=== PATIENT | female | born 1935 | race African-American/Black ===

== ENCOUNTER 2016-10-09 08:40 | Emergency (ER) | payer OTHER, BC ==
[~2016-10-09 08:40] MED LIST: AMLODIPINE5 MG PO; ASPIRIN LOW STR81 M1 PO; ATORVASTATIN CA10 MG PO; ENALAPRIL20 MG PO; HYDROCORTISONE 20 MG PO; LEVOTHYROXIN0.112 MG PO; METFORMIN500 MG PO; SULFAMETHOXAZOLE; VITAMIN D PO
[2016-10-09 09:39] VITALS: BP 155/78
== END 2016-10-09 09:39 | disposition home or self-care (01) ==
LOC: ED 08:40
DX: L02.412 Cutaneous abscess of left axilla (principal); I10 Essential (primary) hypertension; E11.9 Type 2 diabetes mellitus without complications
CPT/HCPCS: J2001

== ENCOUNTER 2016-10-11 08:47 | Inpatient (IN) | payer OTHER, BC ==
[~2016-10-11] VITALS: Ht 175.3 cm; Wt 110.4 kg
[2016-10-11 10:03] LABS: BASOPHIL % 0.5 % (0-2); PLATELET COUNT 205 x10^3mcL (130-400); RED CELL DISTRIBUTION WIDTH 14.5 % (11.5-14.5)
[2016-10-11 10:09] LABS: CALCIUM 8.7 mg/dL (8.5-10.1); CARBON DIOXIDE 25.5 mmol/L (21-32); CHLORIDE SERUM 103 mmol/L (98-107); CREATININE SERUM 2.3 mg/dL (0.6-1.0); GLUCOSE SERUM 251 mg/dL (74-106); SODIUM SERUM 138 mmol/L (136-145)
[2016-10-11 10:20] LABS: ALKALINE PHOSPHATASE 59 U/L (46-116); ALT/SGPT 22 U/L (14-59); AST/SGOT 27 U/L (15-37); MAGNESIUM 1.7 mg/dL (1.8-2.4); TOTAL PROTEIN, SERUM 6.5 g/dL (6.4-8.2)
[2016-10-11 12:15] LABS: UA SPECIFIC GRAVITY 1.015 (1.005-1.035); microscopic required? YES; urine erythrocyte 3+ (NEGATIVE)
[2016-10-11 13:02] LABS: CHOLESTEROL/HDL RATIO 3.3; PHOSPHOROUS 2.5 mg/dL (2.5-4.9)
[2016-10-11 13:09] LABS: FREE T4 1.01 ng/dL (0.76-1.46); T4(THYROXINE) 6.2 ug/dL (4.7-13.3)
[2016-10-11 14:01] VITALS: BP 142/55
[2016-10-11 14:09] VITALS: Ht 175.3 cm; Wt 110.4 kg
[2016-10-11 21:20] VITALS: BP 106/40
[2016-10-12 05:45] VITALS: BP 131/47
[2016-10-12 06:18] LABS: BASOPHIL % 0.5 % (0-2); PLATELET COUNT 170 x10^3mcL (130-400)
[2016-10-12 06:24] LABS: CALCIUM 8.1 mg/dL (8.5-10.1); CARBON DIOXIDE 24.1 mmol/L (21-32); CHLORIDE SERUM 103 mmol/L (98-107); CREATININE SERUM 1.8 mg/dL (0.6-1.0); GLUCOSE SERUM 221 mg/dL (74-106); MAGNESIUM 1.7 mg/dL (1.8-2.4); PHOSPHOROUS 2.8 mg/dL (2.5-4.9); POTASSIUM SERUM 3.7 mmol/L (3.5-5.1); SODIUM SERUM 137 mmol/L (136-145)
[2016-10-12 06:30] LABS: RED CELL DISTRIBUTION WIDTH 14.9 % (11.5-14.5)
[2016-10-12 09:10] VITALS: BP 137/48
[2016-10-12 11:14] LABS: T3 TOTAL 0.83 ng/mL
[2016-10-12 14:03] VITALS: BP 136/50
[2016-10-12 18:38] VITALS: BP 134/98
[2016-10-12 22:29] VITALS: BP 123/52
[2016-10-13 05:41] VITALS: BP 140/58
[2016-10-13 08:32] LABS: CALCIUM 8.6 mg/dL (8.5-10.1); CHLORIDE SERUM 105 mmol/L (98-107); CREATININE SERUM 1.6 mg/dL (0.6-1.0); GLUCOSE SERUM 208 mg/dL (74-106); MAGNESIUM 2.4 mg/dL (1.8-2.4); PHOSPHOROUS 2.5 mg/dL (2.5-4.9); SODIUM SERUM 138 mmol/L (136-145)
[2016-10-13 08:43] LABS: BASOPHIL % 0.4 % (0-2); PLATELET COUNT 172 x10^3mcL (130-400); RED CELL DISTRIBUTION WIDTH 14.4 % (11.5-14.5)
[2016-10-13 09:36] VITALS: BP 131/41
[2016-10-13 15:00] VITALS: BP 136/61
[2016-10-13] MEDS ORDERED: MECLIZINE HYD12.5 MG PO (15:09)
[2016-10-13] MEDS ORDERED: CIPRO250 MG PO (15:11)
[2016-10-13] MEDS ORDERED: LAC PO (15:12)
[2016-10-13 15:42] VITALS: BP 136/61
== END 2016-10-13 17:37 | disposition home or self-care (01) | DRG 73 ==
LOC: ED 08:47 → DU 12:31
PROVIDERS: Emergency Medicine; ADMIT Family Medicine
DX: G90.9 Disorder of the autonomic nervous system, unspecified (principal); N17.0 Acute kidney failure with tubular necrosis; G93.41 Metabolic encephalopathy; N39.0 Urinary tract infection, site not specified; D68.69 Other thrombophilia; E44.0 Moderate protein-calorie malnutrition; E11.51 Type 2 diabetes mellitus with diabetic peripheral angiopathy without gangrene; E11.65 Type 2 diabetes mellitus with hyperglycemia; I12.9 Hypertensive chronic kidney disease with stage 1 through stage 4 chronic kidney disease, or unspecified chronic kidney disease; N18.9 Chronic kidney disease, unspecified; E83.42 Hypomagnesemia; R80.8 Other proteinuria; R31.9 Hematuria, unspecified; E03.9 Hypothyroidism, unspecified; E66.9 Obesity, unspecified; D35.2 Benign neoplasm of pituitary gland; Z68.36 Body mass index [BMI] 36.0-36.9, adult; Z79.84 Long term (current) use of oral hypoglycemic drugs
CPT/HCPCS: 36600; 82962; 83880; 84439; 87804; J0696; J1815; J3475; J7030; Q0092

== ENCOUNTER 2017-06-11 21:54 | Inpatient (IN) | payer OTHER, BC ==
[~2017-06-11] VITALS: Ht 175.3 cm; Wt 113.2 kg
[~2017-06-11 21:54] MED LIST changes: +CIPRO250 MG PO; +LAC PO; +MECLIZINE HYD12.5 MG PO
[2017-06-11 22:48] LABS: BASOPHIL % 0.3 % (0-2); PLATELET COUNT 188 x10^3mcL (130-400)
[2017-06-11 22:55] LABS: RED CELL DISTRIBUTION WIDTH 15.8 % (11.5-14.5)
[2017-06-11 23:19] LABS: CALCIUM 8.9 mg/dL (8.5-10.1); CARBON DIOXIDE 26.6 mmol/L (21-32); CHLORIDE SERUM 103 mmol/L (98-107); CREATININE SERUM 2.1 mg/dL (0.6-1.0); GLUCOSE SERUM 272 mg/dL (74-106); POTASSIUM SERUM 4.2 mmol/L (3.5-5.1); SODIUM SERUM 136 mmol/L (136-145)
[2017-06-11 23:33] LABS: CK-MB 0.6 ng/mL (0-3.6)
[2017-06-11 23:46] LABS: ALBUMIN 3.4 g/dL (3.4-5.0); ALKALINE PHOSPHATASE 64 U/L (46-116); ALT/SGPT 16 U/L (14-59); AST/SGOT 20 U/L (15-37); BILIRUBIN TOTAL 0.34 mg/dL (0.20-1.00); TOTAL PROTEIN, SERUM 7.1 g/dL (6.4-8.2)
[2017-06-11 23:47] LABS: UA SPECIFIC GRAVITY 1.015 (1.005-1.035); microscopic required? YES; urine erythrocyte 2+ (NEGATIVE)
[2017-06-12] MEDS ORDERED: ACT30 PO (00:31)
[2017-06-12] MEDS ORDERED: COZAAR100 MG PO (00:31)
[2017-06-12] MEDS ORDERED: VESICARE5 M1 PO (00:31)
[2017-06-12] MEDS ORDERED: PROCTOSOL-HC2.5% (00:31)
[2017-06-12] MEDS ORDERED: LEVOTHYROXINE0.1 M2 PO (00:32)
[2017-06-12] MEDS ORDERED: ASPIR LOW81 MG PO (00:32)
[2017-06-12] MEDS ORDERED: NOR10 PO (00:32)
[2017-06-12] MEDS ORDERED: HUMALOG MIX 50/10 ML SC (00:32)
[2017-06-12 02:12] LABS: FREE T4 1.06 ng/dL (0.76-1.46); FREE THYROXINE INDEX 2.3 ug/dL (1.4-4.5); T4(THYROXINE) 6.7 ug/dL (4.7-13.3)
[2017-06-12 02:28] VITALS: BP 124/29
[2017-06-12] MEDS ORDERED: VITAMIN D32000 I2 PO (02:49)
[2017-06-12 03:05] LABS: CHOLESTEROL/HDL RATIO 3.2; MAGNESIUM 1.8 mg/dL (1.8-2.4); PHOSPHOROUS 2.6 mg/dL (2.5-4.9)
[2017-06-12 03:50] LABS: T3 TOTAL 0.89 ng/mL
[2017-06-12 05:53] VITALS: BP 114/45
[2017-06-12 09:40] VITALS: BP 136/49
[2017-06-12 13:36] VITALS: BP 106/42
[2017-06-12 17:15] VITALS: BP 115/47
[2017-06-12 21:14] VITALS: BP 113/48
[2017-06-13 06:08] VITALS: BP 144/52
[2017-06-13 06:39] LABS: BASOPHIL % 0.6 % (0-2); PLATELET COUNT 145 x10^3mcL (130-400)
[2017-06-13 06:57] LABS: CALCIUM 8.3 mg/dL (8.5-10.1); CARBON DIOXIDE 25.5 mmol/L (21-32); CHLORIDE SERUM 106 mmol/L (98-107); CREATININE SERUM 1.8 mg/dL (0.6-1.0); GLUCOSE SERUM 191 mg/dL (74-106); POTASSIUM SERUM 3.8 mmol/L (3.5-5.1); SODIUM SERUM 141 mmol/L (136-145)
[2017-06-13 07:06] LABS: RED CELL DISTRIBUTION WIDTH 15.2 % (11.5-14.5)
[2017-06-13 09:54] VITALS: BP 102/42
[2017-06-13 13:36] VITALS: BP 102/42
[2017-06-13 14:19] VITALS: BP 130/40
[2017-06-13 16:46] VITALS: BP 138/56
[2017-06-13 21:44] VITALS: BP 123/46
[2017-06-14 05:27] VITALS: BP 115/40
[2017-06-14 06:35] LABS: PLATELET COUNT 150 x10^3mcL (130-400); RED CELL DISTRIBUTION WIDTH 14.4 % (11.5-14.5)
[2017-06-14 06:37] LABS: CALCIUM 8.5 mg/dL (8.5-10.1); CHLORIDE SERUM 106 mmol/L (98-107); CREATININE SERUM 1.7 mg/dL (0.6-1.0); GLUCOSE SERUM 172 mg/dL (74-106); POTASSIUM SERUM 4.1 mmol/L (3.5-5.1); SODIUM SERUM 140 mmol/L (136-145)
[2017-06-14 06:52] LABS: BASOPHIL % 2.8 % (0-2)
[2017-06-14 09:11] VITALS: BP 126/39
[2017-06-14 12:52] VITALS: BP 162/68
[2017-06-14 16:41] VITALS: BP 118/50
[2017-06-14] MEDS ORDERED: APAP/HYDROCODON1 T13 PO (16:43)
[2017-06-14] MEDS ORDERED: DOCUSATE100 M1 PO (16:43)
== END 2017-06-14 20:15 | disposition home health service (06) | DRG 193 ==
LOC: ED 21:54 → DU 06-12 01:01 → EDBEDREQ 06-12 01:05 → DU 06-12 02:15
PROVIDERS: Emergency Medicine; ADMIT Family Medicine
DX: J09.X2 Influenza due to identified novel influenza A virus with other respiratory manifestations (principal); N17.0 Acute kidney failure with tubular necrosis; D68.69 Other thrombophilia; R65.10 Systemic inflammatory response syndrome (SIRS) of non-infectious origin without acute organ dysfunction; E11.65 Type 2 diabetes mellitus with hyperglycemia; E11.51 Type 2 diabetes mellitus with diabetic peripheral angiopathy without gangrene; I12.9 Hypertensive chronic kidney disease with stage 1 through stage 4 chronic kidney disease, or unspecified chronic kidney disease; N18.9 Chronic kidney disease, unspecified; F32.9 Major depressive disorder, single episode, unspecified; Z91.81 History of falling; E78.5 Hyperlipidemia, unspecified; E03.9 Hypothyroidism, unspecified; R31.9 Hematuria, unspecified; Z79.4 Long term (current) use of insulin; Z79.82 Long term (current) use of aspirin; Z68.36 Body mass index [BMI] 36.0-36.9, adult; Z79.84 Long term (current) use of oral hypoglycemic drugs
CPT/HCPCS: 36600; 82962; 83880; 84439; 87804; 97116-GP; 97530-GP; J1815; J1956; J2405; J7030; Q0092